=== PATIENT | male | born 1980 | race Hispanic/Latino ===

== ENCOUNTER 2017-11-27 09:09 | Outpatient (CLI) | payer OTHER ==
--- NOTE | 2017-11-27 09:30 | RAD ---
PA AND LATERAL VIEWS CHEST: HISTORY: Chest pain. FINDINGS: Comparison is made with the exam of 02/03/17. The heart size is normal. No focal areas of consolidation, pneumothorax, or pleural effusions are se en. No acute osseous abnormality is identified. IMPRESSION: No radiographic evidence of acute cardiopulmonary process. POS: [facility]
== END 2017-11-27 09:10 | disposition home or self-care (01) ==
LOC: RAD-FRANK 09:09
PROVIDERS: ATTEND Nurse Practitioner Family
DX: R07.89 Other chest pain (principal)
CPT/HCPCS: 71046

== ENCOUNTER 2022-07-10 08:36 | Outpatient (CLI) | payer BC | END 2022-07-10 08:37 | disposition home or self-care (01) | LOC: RAD-FRANK 08:36 | PROVIDERS: ATTEND Nurse Practitioner Family | DX: J34.89 Other specified disorders of nose and nasal sinuses (principal); F17.200 Nicotine dependence, unspecified, uncomplicated; W19.XXXA Unspecified fall, initial encounter | CPT/HCPCS: 70160 ==